=== PATIENT | male | born 1995 | race Hispanic/Latino ===

== ENCOUNTER 2016-11-03 19:38 | Emergency (ER) | payer SELFPAY ==
[2016-11-03 19:43] VITALS: BP 127/82; PULSE 112; RESP 16; O2SAT 100
--- NOTE | 2016-11-03 19:54 | ED.REPORT ---
HPI-Dyspnea / Wheezing Date of Service Nov 03, 2016 ED Provider: The patient is a 21 year old male who presents to the emergency department complaining of dyspnea that began suddenly 10 minutes prior to arrival. He has also noticed substernal chest pain, epigastric pain, difficulty swallowing, and anxiety. He smoked marijuana about 30 minutes prior to this episode. He smokes often and does not normally experience symptoms like this. He purchased the marijuana from the dispensary. The patient has had similar symptoms intermittently over the last few days. He had a positive PPD test a several years ago and was not placed on any medication. He denies fever, chills, cough, nausea or vomiting. Nursing Notes Stated Complaint: HARD TIME BREATHING Chief Complaint: Respiratory Complaints Nursing Notes Reviewed: Yes Allergies: Coded Allergies: No Known Allergies (Unverified , 11/03/16) General Time Seen by MD: 19:52 Chief Complaint Shortness of breath Hx Obtained From: Patient Arrived By: Walk-in Sudden in Onset?: Yes Onset Occurred: 1 - 15 minutes ago Symptom Duration: Since onset Location: : Substernal Quality: Painful Severity: Current: Mild Severity: Maximum: Mild Recent Healthcare: No recent doctor visit, No recent hospitalization Similar Sx Previous: Yes Past Medical History Past Medical History +PPD Family History Noncontributory Social History Drug Use: THC Other Social History: Local resident Ambulatory Status Independent Review of Systems Constitutional: Denies: Chills, Fever Respiratory: Reports: Shortness of breath, Denies: Non-productive cough Cardiovascular: Reports: Chest pain Complete sys rev & neg: except as marked. GI: Reports: Abdominal pain, Dysphagia, Denies: Nausea, Vomiting Physical Exam Initial Vital Signs Vital Signs (First) Date Time Temp Pulse Resp B/P Pulse Ox O2 Delivery O2 Flow Rate FiO2 11/03/16 19:43 37.2 112 16 127/82 100 Room Air Mechanical Ventilator Initial VS: Reviewed Head / Eyes: Atraumatic, Normocephalic, PERRL Abdomen / GI: Soft, Non-tender, No guarding, No rebound, No distention Lymphatic: No lymphadenopathy Extremities: Vascular intact, Neuro intact, No swelling, No tenderness Skin: Warm, Dry, No cyanosis Neurologic: Alert, Oriented, Nonfocal Psychiatric: Mood/affect normal, Behavior normal, Normal thought content General/Constitutional: Awake, Alert, Cooperative Behavior: Positive: Anxious Neck: Atraumatic, Supple, No meningismus, Full range of motion, No swelling, Non-tender, No masses Respiratory / Chest: Atraumatic, Breath sounds NL, Breath sounds = bilat, No respiratory distress, No rales, No rhonchi, No wheezing, No retractions, No stridor Cardiovascular: Regular rhythm, Heart sounds NL, No murmurs, No rubs, Peripheral circulation NL, Pulses = bilaterally Heart Rate / Rhythm: Positive: Tachycardia ENT: Atraumatic, Airway patent, Mucous membranes moist, Pharynx NL Interpretation & Diagnostics Interpretation & Diagnostics: VB.444/36/29.6/24.4/1.2 Lab Results Interpretation Result Diagram: 11/03/16195711/03/161957 Test 11/03/16 19:58 11/03/16 21:45 White Blood Count 7.1th/mm3 (3.8-10.1) Red Blood Count 5.01mil/mm3 (4.40-5.80) Hemoglobin 14.5g/dL (13.8-17.2) Hematocrit 42.2% (41.0-50.0) Mean Corpuscular Volume 84.2fL (81-100) Mean Corpuscular Hemoglobin 28.9pg (27.0-35.0) Mean Corpuscular Hemoglobin Concent 34.4% (32.0-37.0) Red Cell Distribution Width 13.2% (12.3-15.4) Platelet Count 252bil/L (150-400) Neutrophils (%) (Auto) 50.8% (40-74) Lymphocytes (%) (Auto) 41.8% (14-46) Monocytes (%) (Auto) 5.5% (4-12) Eosinophils (%) (Auto) 1.4% (0-5) Basophils (%) (Auto) 0.4% (0-3) Sodium Level 137mEq/L (134-144) Potassium Level 3.9mEq/L (3.5-5.2) Chloride Level 99mEq/L (97-108) Carbon Dioxide Level 22mmol/L (18-29) Blood Urea Nitrogen 13mg/dL (6-20) Creatinine 0.64mg/dL (0.76-1.27) Estimat Glomerular Filtration Rate 165mL/min (>59) Glucose Level 134mg/dL (60-99) Calcium Level 9.5mg/dL (8.5-10.1) Total Bilirubin 0.4mg/dL (0.0-1.2) Aspartate Amino Transf (AST/SGOT) 23U/L (0-50) Alanine Aminotransferase (ALT/SGPT) 17U/L (0-44) Alkaline Phosphatase 94U/L (25-150) Troponin T < 0.010ug/L (0.0-0.011) Total Protein 8.0g/dL (6.4-8.4) Albumin 5.0g/dL (3.4-5.0) Hold [place] Top Tube Received (Received) Urine Color Straw (YELLOW) Urine Appearance Clear (CLEAR,HAZY) Urine pH 6.5 (5.0-8.0) Urine Specific [place] <1.005 (1.003-1.035) Urine Protein Negativemg/dL (NEG,TRACE) Urine Glucose (UA) Negativemg/dL (NEGATIVE) Urine Ketones Negativemg/dL (NEGATIVE) Urine Occult Blood Negative (NEGATIVE) Urine Nitrite Negative (NEGATIVE) Urine Bilirubin Negative (NEGATIVE) Urine Urobilinogen Normalmg/dL (NORMAL) Urine Leukocyte Esterase Negative (NEGATIVE) Urine RBC 0-2/hpf (0-2) Urine WBC 0-5/hpf (0-5) Urine Epithelial Cells None/hpf (NONE-MOD) Urine Crystals None seen (NONE SEEN) Urine Bacteria None/hpf (NONE-FEW) Urine Hyaline Casts None/lpf (NONE) Urine Granular Casts None seen (NONE SEEN) Urine Waxy Casts None seen (NONE SEEN) Urine Red Blood Cell Casts None seen (NONE SEEN) Urine White Blood Cell Casts None seen (NONE SEEN) Urine Mucus None seen (None Seen) Urine Trichomonas None seen (NONE SEEN) Urine Yeast None (NONE SEEN) Urinalysis Comment None Urine Culture Reflexed Not indicated ECG Interpretation ECG Interpretation: Sinus tachycardia with a rate of 100 T wave inversion in V1, V2, and aVR No ST elevation S wave in lead I Time: 20:46 Interpreted by: ED physician X-Ray Chest Interpretation Chest Xray Interpretation: IMPRESSION: No acute or active disease is seen in the upright portable chest. Dictated by: José Miguel Cohen M.D. on 11/03/2016 at 20:34 Interpretation / Wet Read by: Interpret - Radiologist CT Chest Interpretation IMPRESSION: No abnormality is identified on CT PE study. The lungs are clear. No embolus. Dictated by: José Miguel Cohen M.D. on 11/03/2016 at 21:16 Study type: CT pulm angiogram Interpretation / Wet Read by: Interpret - Radiologist Re-Eval/Medical Decision Med Decision/Clinical Course 21-year-old male with remote history of positive PPD here with shortness of breath and tachycardia. Differential diagnosis includes but is not limited to anxiety attack versus intoxication versus PE versus TB. Patient's CBC and CMP are unremarkable. His tox was positive for marijuana but nothing else. His PE scan was negative. Patient was extremely anxious while in the emergency department. However, after treatment with Benadryl, his heart rate would decrease down to the 60s when he would follow sleep. I walked into his room at one point, and his heart rate was 65, is then rapidly kasandra to 110 when I talk to him. I believe that most of his tachycardia and shortness of breath are secondary to anxiety. His workup is entirely normal at this point and I feel comfortable discharging him with follow-up with his primary care physician. He is aware and amenable for discharge. He has been given strict return precautions. Source of Hx: Old records Re-Evaluation/Progress #1: Time of Eval: 21:11 Re-Evaluation/Progress Note: Rechecked the patient. His heart rate has improved. Re-Evaluation/Progress #2: Time of Eval: 22:14 Re-Evaluation/Progress Note: Rechecked the patient. He is sleeping comfortably and awakes easily. He is feeling much better. His heart rate is now at 80. Discussed results, diagnosis, and plan for discharge. All questions were addressed. Counseled Regarding: Diagnosis, Lab results, Need for follow-up, When/why to return to ED Discharge & Departure Impression: Primary Impression: Dyspnea Dyspnea type: unspecified Qualified Code: R06.00 - Dyspnea, unspecified Disposition: Home Discharge Condition All VS Reviewed: Yes Condition: Stable Additional Instructions: Thank you for entrusting us with your care today. Your labs, EKG, chest x-ray, and chest CT today are reassuring. There is no evidence of a blood clot, pneumonia or pneumothorax. Your symptoms may be related to anxiety. You should followup with a regular doctor in the next few days to further evaluate these symptoms. We have given you a referral to [facility] and the residency clinic. Call tomorrow to schedule an appointment. Your blood pressure was also slightly elevated in the emergency department today. You should discuss this with a primary physician as well. Please return to the emergency department for any new or concerning symptoms. Referrals: [facility] Scribe Attestation Portions of this note were transcribed by Bridget Astorga. I, Dr. Juarez personally performed the history, physical exam and medical decision-making; I reviewed and confirmed the accuracy of the information in the transcribed note. Signed by: Stanley Grimaldo, 11/03/2016 and 2220. Della Juarez MD Nov 03, 2016 19:53 Bridget Astorga Nov 03, 2016 19:56
[2016-11-03 20:05] LABS: BASOPHILS % (AUTO) 0.4 % (0-3); EOSINOPHILS % (AUTO) 1.4 % (0-5); MONOCYTES % (AUTO) 5.5 % (4-12); Mean Corpuscular Hemoglobin 28.9 pg (27.0-35.0); Mean Corpuscular Volume 84.2 fL (81-100); NEUTROPHILS % (AUTO) 50.8 % (40-74); Platelet Count 252 bil/L (150-400)
[2016-11-03] MEDS ORDERED: Famotidine 10 mg/mL 2 mL Inj IVPUSH ONE (20:05)
[2016-11-03] MEDS ORDERED: 0.9% Sodium Chloride 1,000 ML IV ONE (20:05)
[2016-11-03] MEDS ORDERED: MethylprednisoLONE Sodium Succinate 62.5 mg/mL 2 mL Inj IVPUSH ONE (20:05)
--- NOTE | 2016-11-03 20:11 | ABG ---
DateTimeAnalyzed 20:07:00 -_ pH ____7.444 - pCO2 ___36.2__ -mmHg pO2 ___29.6__ -mmHg HCO3- ___24.4__ -mmol/L ABE ____1.2__ -mmol/L tHb ___14.7__ -g/dL O2Hb ___58.2__ -% COHb ____2.4__ -% MetHb ____0.9__ -% sO2 ___60.2__ -% FIO2 ___21.0__ -% Drawn By RN - Date/Time Notified____ 20:11:00 -_ Notified By MD - Notified Whom __DR LINK - B 761 -mmHg tO2 ___11.9__ -Vol% Elier test N/A -
[2016-11-03] MEDS ORDERED: FAMOTIDINE IV ONE ×2 (20:25→20:50)
[2016-11-03 20:31] LABS: TROPONIN T < 0.010 ug/L (0.0-0.011)
--- NOTE | 2016-11-03 20:35 | DRSVH ---
PROCEDURE: X-RAY CHEST ONE VIEW, PORTABLE ([id number]) INDICATIONS: SHORT OF BREATH TECHNIQUE: One view of the chest was acquired. COMPARISON: None. FINDINGS: Surgical changes and devices: jai alai player leads and oxygen tubing is seen over the chest. Lungs and pleura: No pleural effusions or pneumothorax. Lungs are clear. Mediastinum: Mediastinal contours appear normal. Heart size is normal. Bones and chest wall: No suspicious bony lesions. Overlying soft tissues appear unremarkable. IMPRESSION: No acute or active disease is seen in the upright portable chest. Dictated by: José Miguel Cohen M.D. on 11/03/2016 at 20:34 Approved by: José Miguel Cohen M.D. on 11/03/2016 at 20:34
[2016-11-03] MEDS ORDERED: SODIUM CHLORIDE 0.9% IV ONE (20:50)
--- NOTE | 2016-11-03 21:29 | DRSVH ---
PROCEDURE: CT ANGIO CHEST PULMONARY EMBOLISM ([id number]) INDICATIONS: SOB tachycardia TECHNIQUE: After the administration of intravenous contrast, 2 mm thick sections acquired from the pulmonary api óscar to the posterior costophrenic angles. 3-dimensional maximum intensity projection (MIP) coronal a nd sagittal reformats were then acquired through the thorax. For radiation dose reduction, the follo wing was used: automated exposure control, adjustment of mA and/or kV according to patient size. COMPARISON: None. FINDINGS: Image quality: Excellent. Pulmonary arteries: Pulmonary arteries are normal in size, and demonstrate no intraluminal filling d efects to suggest central pulmonary embolism. Lungs and pleura: Lungs are clear. No pleural effusions or pneumothorax. Central and peripheral ai rways are patent. Mediastinum: Heart size is normal, without pericardial effusion. No mediastinal or hilar adenopathy . Thoracic aorta is normal in caliber and enhancement. Esophagus is normal in caliber, without hiat al hernia. Bones and chest wall: No suspicious bony lesions. Ribs and thoracic spine appear intact throughout. Thyroid gland is within normal limits. No axillary or supraclavicular adenopathy. Abdomen: Visualized upper abdominal solid organs appear normal in the early arterial phase of enhanc ement. IMPRESSION: No abnormality is identified on CT PE study. The lungs are clear. No embolus. Dictated by: José Miguel Cohen M.D. on 11/03/2016 at 21:16 Approved by: José Miguel Cohen M.D. on 11/03/2016 at 21:27
[2016-11-03 22:08] LABS: APPEARANCE,URINE CLEAR (CLEAR,HAZY); COLOR,URINE STRAW (YELLOW); OCCULT BLOOD,URINE NEGATIVE (NEGATIVE); PH,URINE 6.5 (5.0-8.0); UROBILINOGEN,URINE NORMAL (NORMAL)
[2016-11-03 23:53] VITALS: BP 122/64; PULSE 84; RESP 18; O2SAT 98
== END 2016-11-03 22:33 | disposition home or self-care (01) ==
LOC: SED 19:38
DX: R06.00 Dyspnea, unspecified (principal); R07.2 Precordial pain; R10.13 Epigastric pain; R13.10 Dysphagia, unspecified; F41.9 Anxiety disorder, unspecified; F12.90 Cannabis use, unspecified, uncomplicated
CPT/HCPCS: 36415; 71010; 71275; 80053; 81000; 82375; 82803; 82948; 84484; 85025; 93005; 96361; 96365; 96375; 99285; J1200; J2060; J2930; J3490; J7030; Q9967

== ENCOUNTER 2016-11-06 20:24 | Emergency (ER) | payer SELFPAY ==
[~2016-11-06] VITALS: Ht 172.7 cm; Wt 61.4 kg
[2016-11-06 20:40] VITALS: BP 113/76; PULSE 87; RESP 20; O2SAT 100
[2016-11-06 21:24] LABS: BASOPHILS % (AUTO) 0.1 % (0-3); EOSINOPHILS % (AUTO) 1.2 % (0-5); MONOCYTES % (AUTO) 4.4 % (4-12); Mean Corpuscular Hemoglobin 29.2 pg (27.0-35.0); Mean Corpuscular Volume 83.7 fL (81-100); NEUTROPHILS % (AUTO) 70.8 % (40-74); Platelet Count 219 bil/L (150-400)
[2016-11-06 21:44] LABS: Magnesium 2.2 mg/dL (1.6-2.6)
--- NOTE | 2016-11-06 22:41 | ED.REPORT ---
HPI-Abd Pain M Under 38 Date of Service Nov 06, 2016 ED Provider: Bro Goodman MD Patient is a 21 year old male who presents to the ED accompanied by his due to intermittent right sided periumbilical pain for 2 days. Patient reports SOB, burping, mild constipation, reduced bowel movement, with only 2 bowel movements in the last 3 days. He is mildly anxious in the room. He says that when he's by himself he has suicidal ideations, but denies intention to hurt himself. He denies dysuria. Dr. Webb is his PCP. He smokes marijuana daily and does not drink alcohol. Nursing Notes Stated Complaint: DIFFICULTY BREATHING Chief Complaint: Male Abdominal Pain Allergies: Coded Allergies: No Known Allergies (Unverified , 11/03/16) Scheduled PRN Hydroxyzine Pamoate (HydrOXYzine Pamoate) 50 Mg Capsule 50 MG PO HS PRN PRN For Insomnia General Time Seen by MD: 22:10 Chief Complaint Abdominal pain Hx Obtained From: Patient Arrived By: Walk-in Sudden in Onset?: Yes Onset Occurred: 2 days ago Symptom Duration: Since onset Location: : Periumbilical Severity: Current: Moderate Recent Healthcare: No recent doctor visit, No recent hospitalization Similar Sx Previous: No Past Medical History Past Medical History +PPD Past Surgical History denies Family History Noncontributory Smoking History Never Smoker Social History Alcohol Use: Denies alcohol use Drug Use: THC (daily) Other Social History: , Local resident Ambulatory Status Independent Review of Systems Review of Systems Note: burping Respiratory: Reports: Shortness of breath GI: Reports: Abdominal pain, Constipation Male: Denies Dysuria Complete sys rev & neg: except as marked. Physical Exam Physical Exam Notes: right sided periumbilical pain Initial Vital Signs Vital Signs (First) Date Time Temp Pulse Resp B/P Pulse Ox O2 Delivery O2 Flow Rate FiO2 11/06/16 20:40 37.3 87 20 113/76 100 Room Air Initial VS: Reviewed Head / Eyes: Atraumatic, Normocephalic, PERRL ENT: Mucous membranes moist, Conjunctiva normal, No scleral icterus Extremities: Vascular intact, Neuro intact, No swelling, No tenderness Skin: Warm, Dry, No cyanosis Neurologic: Alert, Oriented, Nonfocal Psychiatric: Mood/affect normal, Behavior normal, Normal thought content General/Constitutional: Awake, Alert, No acute distress, Well appearing, Cooperative, Not toxic appearing Behavior: Positive: Anxious odd and anxious affect reclining on gurney comfortably Respiratory / Chest: Atraumatic, Breath sounds NL, Breath sounds = bilat, No respiratory distress, No rales, No rhonchi, No wheezing, No retractions Cardiovascular: Heart rate NL, Regular rhythm, Heart sounds NL, No gallop, No murmurs, No rubs Abdomen: Atraumatic, Soft, Non-tender, No guarding, No rebound, BS normoactive Tenderness/Guarding/Rebound: Positive: Tender RUQ... (Mild) Back: Atraumatic, Inspection NL, Full range of motion, Painless range of motion , No midline vertebral tend, No CVA tenderness Skin: Color NL, Warm, Dry Psychiatric: Cognitive function NL, Thought content NL Abnormal Mood/Affect: Positive: Anxious, Flat affect Abnormal Thinking / Perception: Positive: Hallucinations, auditory, Loose associations admits to SI but no active plan or intent Interpretation & Diagnostics Lab Results Interpretation Result Diagram: 11/06/16210911/06/162109 Test 11/06/16 21:10 White Blood Count 7.5th/mm3 (3.8-10.1) Red Blood Count 5.04mil/mm3 (4.40-5.80) Hemoglobin 14.7g/dL (13.8-17.2) Hematocrit 42.2% (41.0-50.0) Mean Corpuscular Volume 83.7fL (81-100) Mean Corpuscular Hemoglobin 29.2pg (27.0-35.0) Mean Corpuscular Hemoglobin Concent 34.8% (32.0-37.0) Red Cell Distribution Width 13.0% (12.3-15.4) Platelet Count 219bil/L (150-400) Neutrophils (%) (Auto) 70.8% (40-74) Lymphocytes (%) (Auto) 23.4% (14-46) Monocytes (%) (Auto) 4.4% (4-12) Eosinophils (%) (Auto) 1.2% (0-5) Basophils (%) (Auto) 0.1% (0-3) Sodium Level 139mEq/L (134-144) Potassium Level 3.3mEq/L (3.5-5.2) Chloride Level 100mEq/L (97-108) Carbon Dioxide Level 21mmol/L (18-29) Blood Urea Nitrogen 11mg/dL (6-20) Creatinine 0.62mg/dL (0.76-1.27) Estimat Glomerular Filtration Rate 171mL/min (>59) Glucose Level 111mg/dL (60-99) Calcium Level 9.8mg/dL (8.5-10.1) Magnesium Level 2.2mg/dL (1.6-2.6) Total Bilirubin 0.5mg/dL (0.0-1.2) Aspartate Amino Transf (AST/SGOT) 21U/L (0-50) Alanine Aminotransferase (ALT/SGPT) 16U/L (0-44) Alkaline Phosphatase 88U/L (25-150) Total Protein 7.9g/dL (6.4-8.4) Albumin 4.9g/dL (3.4-5.0) Lab Results Interpretation: urine dip negative positive for THC Re-Eval/Medical Decision Med Decision/Clinical Course 18-year-old male complaining presented with vague complaints and anxious, distant affect. His extremity by his who is in agreement that his affect of late has been odd. Utox is positive only for marijuana, this is consistent with previous evaluation. I am not finding any serious medical issues related to abdominal pain or dyspnea tonight. I am concerned the patient may have a newly emerging psychiatric illness or possibly complications of excessive cannabis use. Since he is followed at [facility] [place] of advised him to follow up with [facility]. Also advised him to discontinue cannabis. His endorsed insomnia which may be contributing, will start hydroxyzine to hopefully help him get some sleep. Re-Evaluation/Progress : Time of Eval: 23:07 Re-Evaluation/Progress Note: Pt rechecked. Informed pt of lab results and plan of treatment. Advises pt call [facility] tomorrow for an appointment. F/U and RTER warnings given. Pt understands and agrees with plan. Counseled Regarding: Diagnosis, Lab results, Need for follow-up, When/why to return to ED Patient Discharge & Departure Primary Impression: Right upper quadrant abdominal pain Disposition: Home Discharge Condition All VS Reviewed: Yes Condition: Stable Additional Instructions: Emergency department evaluation tonight included interview, examination, labs and review of past records. No serious cause for symptoms of abdominal pain and trouble breathing or identified tonight. Reported insomnia and auditory hallucinations raise concern for psychiatric illness. He was advised to call [facility] tomorrow for an appointment. May use hydroxyzine 25- 50 mg at bedtime for sleep. Return to emergency department for concern of harming self or others, increasing agitation, question abdominal pain or frequent vomiting. It would be helpful to discontinue cannabis use completely. Referrals: Isma Webb MD Attestation Portion of this note were transcribed by Kyra Moore. I, Dr. Goodman, personally performed the history, physical exam, and medical decision-making: I reviewed and confirmed the accuracy for the information in the transcribed note. Signed by: kait Etienne, 11/06/16 0256 copies to: Isma Webb MD, Donald L MD Nov 06, 2016 22:41 Kyra Moore Nov 06, 2016 22:48
[2016-11-06] MEDS ORDERED: HYDR50CA3 PO (23:16)
[2016-11-07 00:35] VITALS: BP 126/72; PULSE 90; RESP 18; O2SAT 99
== END 2016-11-07 00:37 | disposition home or self-care (01) ==
LOC: SED 20:24
DX: R10.11 Right upper quadrant pain (principal); R06.02 Shortness of breath; K59.00 Constipation, unspecified; R14.2 Eructation; F41.9 Anxiety disorder, unspecified; G47.00 Insomnia, unspecified; F12.20 Cannabis dependence, uncomplicated
CPT/HCPCS: 36415; 80053; 83735; 85025; 99284; Q0177